=== PATIENT | male | born 1995 | race American Indian/Alaskan Native ===

== ENCOUNTER 2017-03-23 15:03 | Emergency (ER) | payer SELFPAY ==
[2017-03-23 15:11] VITALS: BP 122/60
== END 2017-03-23 17:30 | disposition left against medical advice (07) ==
LOC: ED 15:03
DX: Z53.21 Procedure and treatment not carried out due to patient leaving prior to being seen by health care provider (principal)
CPT/HCPCS: 87400

== ENCOUNTER 2019-07-25 23:04 | Emergency (ER) | payer SELFPAY ==
[2019-07-25 23:07] VITALS: BP 140/90
--- NOTE | 2019-07-25 23:36 | Emergency Department Report ---
Chief Complaint: Urogenital-Male Stated Complaint: BURN WHEN PEE Time Seen by Provider: 07/25/19 23:32 - HPI History of Present Illness: dysuria with discharge x 2 days states partner with chlamydia - ROS Review of Systems: no fever no chills no n/v, mild dysuria frequency no open sores - Exam Vital Signs: Vital Signs 07/25/19 23:06 Temperature 98.4 F Pulse Rate 75 Respiratory 18 Rate Blood Pressure 140/90 O2 Sat by Pulse 99 Oximetry Physical Exam: pt a/o x 3, ambulatory with steady gait, no abd tenderness. MSE screening note: Focused history and physical exam performed. Due to findings the following was ordered: Patient discussed with doctor:: JAZMINE AMAYA ED Medical Decision Making - Medical Decision Making MSE completed pt will follow up with Health department in am for tx of this non emergency medical condition. pt dc'd self in stable conditions at this time. ED Disposition for MSE Clinical Impression: STI (sexually transmitted infection) Disposition: MED SCREENING EXAM-LEFT Is pt being admited?: No Does the pt Need Aspirin: No Condition: Stable Instructions: Sexually Transmitted Diseases (ED) Additional Instructions: follow up with [facility] [address] [place] [id number], [employer] \\ [facility]: [facility]
== END 2019-07-25 23:45 | disposition left against medical advice (07) ==
LOC: ED 23:04
DX: R30.0 Dysuria (principal)
CPT/HCPCS: 99281